=== PATIENT | male | born 1995 | race Caucasian/White ===

== ENCOUNTER 2016-04-25 18:19 | Emergency (ER) | payer OTHER ==
[~2016-04-25] VITALS: Ht 177.8 cm; Wt 71.2 kg
[2016-04-25 19:18] VITALS: BP 138/65
== END 2016-04-25 19:18 | disposition home or self-care (01) ==
LOC: ED 18:19
DX: L03.116 Cellulitis of left lower limb (principal)
CPT/HCPCS: 90715